=== PATIENT | male | born 1965 | race Caucasian/White ===

== ENCOUNTER 2021-12-02 15:22 | Emergency (ER) | payer OTHER ==
[2021-12-02] MEDS ORDERED: Ketorolac 30 MG/ML SDV IM ONE (17:14)
== END 2021-12-02 17:45 | disposition home or self-care (01) ==
LOC: LL.ED 15:22
DX: M25.561 Pain in right knee (principal); K21.9 Gastro-esophageal reflux disease without esophagitis; Z79.899 Other long term (current) drug therapy
CPT/HCPCS: 73562; 96372; 99283; J1885

== ENCOUNTER 2022-01-05 09:03 | Emergency (ER) | payer OTHER, MEDICARE | END 2022-01-05 09:20 | disposition home or self-care (01) | LOC: LL.ED 09:03 | DX: S61.012A Laceration without foreign body of left thumb without damage to nail, initial encounter (principal); K21.9 Gastro-esophageal reflux disease without esophagitis; F17.210 Nicotine dependence, cigarettes, uncomplicated; Z79.899 Other long term (current) drug therapy; W26.8XXA Contact with other sharp object(s), not elsewhere classified, initial encounter | CPT/HCPCS: 99282 ==

== ENCOUNTER 2022-03-31 18:07 | Emergency (ER) | payer MEDICARE, OTHER | END 2022-03-31 19:35 | disposition home or self-care (01) | LOC: LL.ED 18:07 | DX: S60.221A Contusion of right hand, initial encounter (principal); K21.9 Gastro-esophageal reflux disease without esophagitis; Z72.0 Tobacco use; Z79.899 Other long term (current) drug therapy; W00.0XXA Fall on same level due to ice and snow, initial encounter; Y93.29 Activity, other involving ice and snow | CPT/HCPCS: 73130-RT; 99283 ==

== ENCOUNTER 2024-03-29 09:28 | Inpatient (IN) | payer OTHER ==
[2024-03-29 09:43] LABS: BASOPHILS ABSOLUTE AUTO 0.09 K/uL (0.00-0.20); BASOPHILS PERCENT AUTO 0.7 % (0.0-2.0); EOSINOPHILS ABSOLUTE AUTO 0.05 K/uL (0.00-0.50); EOSINOPHILS PERCENT AUTO 0.4 % (0.0-5.0); HEMATOCRIT 49.5 % (39.0-49.0); HEMOGLOBIN 17.5 g/dL (13.1-16.8); IMMATURE GRAN ABSOLUTE AUTO 0.04 10^3/uL (0.00-0.50); IMMATURE GRAN PERCENT AUTO 0.3 % (0.0-5.0); LYMPHOCYTES ABSOLUTE AUTO 1.89 K/uL (0.50-3.50); LYMPHOCYTES PERCENT AUTO 14.6 % (10.0-50.0); MEAN CORPUSCULAR HEMOGLOBIN 32.5 pg (28.2-33.3); MEAN CORPUSCULAR HGB CONC 35.4 g/dL (31.7-36.0); MONOCYTES ABSOLUTE AUTO 0.93 K/uL (0.00-1.00); MONOCYTES PERCENT AUTO 7.2 % (2.0-14.0); NEUTROPHILS ABSOLUTE AUTO 9.95 K/uL (1.40-7.00); NEUTROPHILS PERCENT AUTO 76.8 % (45.0-80.0); PLATELET COUNT,PLT 219 K/uL (150-350); RED BLOOD CELL COUNT 5.38 M/uL (4.33-5.41); RED CELL DISTRIBUTION WIDTH 12.9 % (11.2-14.1)
[2024-03-29 10:02] LABS: PROTHROMBIN TIME 10.2 SEC (9.0-11.1)
[2024-03-29 10:04] LABS: ALBUMIN 3.5 g/dL (3.4-5.0); BILIRUBIN TOTAL 1.9 mg/dL (0.2-1.0); CARBON DIOXIDE,CO2 26.1 mmol/L (21.0-32.0); CREATININE 1.02 mg/dL (0.51-1.17); EST CRCL DRUG DOSING (CG) 91.78 mL/min; POTASSIUM,K 3.1 mmol/L (3.5-5.1); PROTEIN TOTAL,TP 7.4 g/dL (6.4-8.2)
[2024-03-29 10:09] LABS: LACTIC ACID 1.4 mmol/L (0.4-2.0)
[2024-03-29] MEDS: Ondansetron 4 MG/2 ML SDV IVPUSH ONE (10:27)
[2024-03-29] MEDS: Ketorolac 15 MG/ML SDV IVPUSH ONE (10:27)
[2024-03-29] MEDS: Sodium Chloride 0.9% 10 ML Syringe FLUSH PRN (10:28)
[2024-03-29] MEDS: Simethicone 125 MG Tab.Chew PO ONE (11:28)
[2024-03-29] MEDS ORDERED: Naloxone 0.4 MG/ML SDV IVPUSH PRN ×2 (12:31→13:28)
[2024-03-29] MEDS: Lactated Ringers 1,000 ML IV ONE (12:34)
[2024-03-29] MEDS: fentaNYL 50 MCG/ML SDV IVPUSH ONE ×3 (12:34→21:43)
[2024-03-29] MEDS: Lactated Ringers 1,000 ML IV SCH (13:35)
[2024-03-29] MEDS: Nicotine 21 MG/24 Hr Patch TRDERM SCH (14:33)
[2024-03-29] MEDS: Enoxaparin 40 MG/0.4 ML Syringe SUBCUT SCH (14:33)
[2024-03-29] MEDS: fentaNYL 50 MCG/ML SDV IVPUSH PRN (14:37)
[2024-03-29] MEDS: Ondansetron 4 MG/2 ML SDV IVPUSH PRN (16:29)
[2024-03-29] MEDS: Potassium Chloride Riders 10 MEQ in Premix Bag 1 BAG IV SCH (17:05)
[2024-03-29 17:47] LABS: MAGNESIUM 1.3 mg/dL (1.8-2.4); PHOSPHORUS 3.2 mg/dL (2.6-4.7); POTASSIUM,K 3.3 mmol/L (3.5-5.1)
[2024-03-29] MEDS: Promethazine 12.5 MG in Sodium Chloride 0.9% 100 ML IV PRN (21:21)
[2024-03-29] MEDS: Lactated Ringers 500 ML IV ONE (21:43)
[2024-03-29] MEDS: Magnesium Sulfate/Water Premix 2 GM in Premix Bag 1 BAG IV ONE (21:55)
[2024-03-29] MEDS: Pantoprazole 40 MG Vial IVPUSH SCH (23:22)
[2024-03-30] MEDS: Magnesium Sulfate/Water Premix 2 GM in Premix Bag 1 BAG IV ONE (03:52)
[2024-03-30 07:55] LABS: ALBUMIN 2.8 g/dL (3.4-5.0); ANION GAP 8.1 meq/L (7-15); CALCIUM 8.2 mg/dL (8.5-10.1); CARBON DIOXIDE,CO2 29.9 mmol/L (21.0-32.0); CREATININE 1.12 mg/dL (0.51-1.17); EST CRCL DRUG DOSING (CG) 83.59 mL/min; MAGNESIUM 2.4 mg/dL (1.8-2.4); PROTEIN TOTAL,TP 6.5 g/dL (6.4-8.2)
[2024-03-30 08:32] LABS: BASOPHILS ABSOLUTE AUTO 0.07 K/uL (0.00-0.20); BASOPHILS PERCENT AUTO 0.8 % (0.0-2.0); EOSINOPHILS ABSOLUTE AUTO 0.12 K/uL (0.00-0.50); EOSINOPHILS PERCENT AUTO 1.4 % (0.0-5.0); HEMATOCRIT 45.3 % (39.0-49.0); HEMOGLOBIN 15.5 g/dL (13.1-16.8); IMMATURE GRAN ABSOLUTE AUTO 0.03 10^3/uL (0.00-0.50); IMMATURE GRAN PERCENT AUTO 0.4 % (0.0-5.0); LYMPHOCYTES PERCENT AUTO 20.2 % (10.0-50.0); MEAN CORPUSCULAR HGB CONC 34.2 g/dL (31.7-36.0); MEAN CORPUSCULAR VOLUME 96.6 fL (84.0-98.0); MONOCYTES ABSOLUTE AUTO 0.71 K/uL (0.00-1.00); MONOCYTES PERCENT AUTO 8.4 % (2.0-14.0); NEUTROPHILS ABSOLUTE AUTO 5.79 K/uL (1.40-7.00); NEUTROPHILS PERCENT AUTO 68.8 % (45.0-80.0); PLATELET COUNT,PLT 136 K/uL (150-350); RED BLOOD CELL COUNT 4.69 M/uL (4.33-5.41); RED CELL DISTRIBUTION WIDTH 13.1 % (11.2-14.1); WHITE BLOOD CELL COUNT,WBC 8.4 K/uL (4.0-10.2)
[2024-03-30] MEDS ORDERED: Ketorolac 15 MG/ML SDV IVPUSH PRN (16:23)
[2024-03-31 07:51] LABS: BASOPHILS ABSOLUTE AUTO 0.05 K/uL (0.00-0.20); BASOPHILS PERCENT AUTO 0.6 % (0.0-2.0); EOSINOPHILS ABSOLUTE AUTO 0.21 K/uL (0.00-0.50); EOSINOPHILS PERCENT AUTO 2.5 % (0.0-5.0); HEMATOCRIT 44.9 % (39.0-49.0); HEMOGLOBIN 15.6 g/dL (13.1-16.8); IMMATURE GRAN ABSOLUTE AUTO 0.03 10^3/uL (0.00-0.50); IMMATURE GRAN PERCENT AUTO 0.4 % (0.0-5.0); LYMPHOCYTES ABSOLUTE AUTO 1.47 K/uL (0.50-3.50); LYMPHOCYTES PERCENT AUTO 17.5 % (10.0-50.0); MEAN CORPUSCULAR HEMOGLOBIN 32.6 pg (28.2-33.3); MEAN CORPUSCULAR HGB CONC 34.7 g/dL (31.7-36.0); MEAN CORPUSCULAR VOLUME 93.9 fL (84.0-98.0); MONOCYTES ABSOLUTE AUTO 0.64 K/uL (0.00-1.00); MONOCYTES PERCENT AUTO 7.6 % (2.0-14.0); NEUTROPHILS PERCENT AUTO 71.4 % (45.0-80.0); PLATELET COUNT,PLT 140 K/uL (150-350); RED BLOOD CELL COUNT 4.78 M/uL (4.33-5.41); RED CELL DISTRIBUTION WIDTH 12.6 % (11.2-14.1); WHITE BLOOD CELL COUNT,WBC 8.4 K/uL (4.0-10.2)
[2024-03-31 08:12] LABS: ALBUMIN 2.7 g/dL (3.4-5.0); BILIRUBIN TOTAL 1.9 mg/dL (0.2-1.0); CALCIUM 8.2 mg/dL (8.5-10.1); CREATININE 0.89 mg/dL (0.51-1.17); EST CRCL DRUG DOSING (CG) 105.19 mL/min; POTASSIUM,K 3.2 mmol/L (3.5-5.1); PROTEIN TOTAL,TP 6.7 g/dL (6.4-8.2)
[2024-03-31 08:13] LABS: ANION GAP 13.2 meq/L (7-15)
[2024-03-31] MEDS: Potassium Bicarbonate/Cit Ac 20 MEQ Effervescent Tab PO ONE (11:44)
== END 2024-03-31 11:49 | disposition home or self-care (01) | DRG 440 ==
LOC: LL.ED 09:28 → LL.MS 12:46 → UNDOADMIN 12:52
PROVIDERS: ADMIT Physician Assistant; ATTEND Physician Assistant
DX: K85.90 Acute pancreatitis without necrosis or infection, unspecified (principal); R11.0 Nausea; E87.6 Hypokalemia; E83.42 Hypomagnesemia; K21.9 Gastro-esophageal reflux disease without esophagitis; M54.9 Dorsalgia, unspecified; G89.29 Other chronic pain; I10 Essential (primary) hypertension; H54.7 Unspecified visual loss; Z88.8 Allergy status to other drugs, medicaments and biological substances; Z79.899 Other long term (current) drug therapy; Z87.81 Personal history of (healed) traumatic fracture; Z98.890 Other specified postprocedural states
CPT/HCPCS: 36415; 74019; 76705; 80053; 80061; 82947; 83605; 83690; 83735; 84100; 84132; 85025; 85610; 96374; 96375; 99223; 99233; 99239; 99285-25; A9270-GY; J1650; J1885; J2405; J2470; J2550; J3010; J3475; J3480; J3490; J7120

== ENCOUNTER 2024-09-01 07:29 | Emergency (ER) | payer OTHER ==
[2024-09-01 07:49] LABS: BASOPHILS ABSOLUTE AUTO 0.07 K/uL (0.00-0.20); BASOPHILS PERCENT AUTO 0.8 % (0.0-2.0); EOSINOPHILS PERCENT AUTO 2.3 % (0.0-5.0); HEMATOCRIT 47.4 % (39.0-49.0); HEMOGLOBIN 17.1 g/dL (13.1-16.8); IMMATURE GRAN ABSOLUTE AUTO 0.03 10^3/uL (0.00-0.04); IMMATURE GRAN PERCENT AUTO 0.3 % (0.0-0.4); LYMPHOCYTES ABSOLUTE AUTO 2.51 K/uL (0.50-3.50); LYMPHOCYTES PERCENT AUTO 28.8 % (10.0-50.0); MEAN CORPUSCULAR HEMOGLOBIN 35.2 pg (28.2-33.3); MEAN CORPUSCULAR HGB CONC 36.1 g/dL (31.7-36.0); MEAN CORPUSCULAR VOLUME 97.5 fL (84.0-98.0); MONOCYTES ABSOLUTE AUTO 0.71 K/uL (0.00-1.00); MONOCYTES PERCENT AUTO 8.1 % (2.0-14.0); NEUTROPHILS PERCENT AUTO 59.7 % (45.0-80.0); PLATELET COUNT,PLT 199 K/uL (150-350); RED BLOOD CELL COUNT 4.86 M/uL (4.33-5.41); RED CELL DISTRIBUTION WIDTH 15.2 % (11.2-14.1); WHITE BLOOD CELL COUNT,WBC 8.7 K/uL (4.0-10.2)
[2024-09-01] MEDS ORDERED: Naloxone 0.4 MG/ML SDV IVPUSH PRN (07:51)
[2024-09-01] MEDS ORDERED: LORazepam 2 MG/ML SDV IVPUSH PRN (07:53)
[2024-09-01] MEDS: Sodium Chloride 0.9% 1,000 ML IV SCH ×2 (07:54→11:57)
[2024-09-01] MEDS: fentaNYL 50 MCG/ML SDV IVPUSH ONE ×4 (07:56→14:07)
[2024-09-01] MEDS: Sodium Chloride 0.9% 10 ML Syringe FLUSH PRN (07:57)
[2024-09-01] MEDS: Iopamidol 612 MG/ML 100 ML Bottle IVPUSH ONE (08:02)
[2024-09-01 08:08] LABS: LACTIC ACID 2.5 mmol/L (0.4-2.0)
[2024-09-01 08:15] LABS: ALANINE AMINOTRANSFERASE,ALT 81 U/L (12-78); ALKALINE PHOSPHATASE 125 IU/L (46-116); ASPARTATE AMNIOTRANSFERASE,AST 147 U/L (15-37); BILIRUBIN TOTAL 1.2 mg/dL (0.2-1.0); BLOOD UREA NITROGEN,BUN 4 mg/dL (7-18); CALCIUM 8.4 mg/dL (8.5-10.1); CARBON DIOXIDE,CO2 27.6 mmol/L (21.0-32.0); CHLORIDE,CL 104 mmol/L (98-107); CREATININE 0.86 mg/dL (0.51-1.17); GLUCOSE RANDOM 129 mg/dL (70-99); PROTEIN TOTAL,TP 6.8 g/dL (6.4-8.2); SODIUM,NA 141 mmol/L (136-145)
[2024-09-01 08:29] LABS: ESTIMATED GFR 100 mL/min (>=60); LIPASE 414 U/L (16-77); POTASSIUM,K 2.6 mmol/L (3.5-5.1)
[2024-09-01] MEDS: Potassium Chloride Riders 10 MEQ in Premix Bag 1 BAG IV ONE ×2 (08:50→12:01)
[2024-09-01] MEDS: Potassium Bicarbonate/Cit Ac 20 MEQ Effervescent Tab PO ONE ×4 (08:51→13:28)
[2024-09-01] MEDS: Potassium Chloride Riders 10 MEQ in Premix Bag 1 BAG IV SCH (09:46)
[2024-09-01] MEDS: LORazepam 1 MG Tab PO ONE ×2 (11:47→14:20)
[2024-09-01] MEDS: Promethazine 25 MG Tab PO ONE (11:55)
[2024-09-01] MEDS: cloNIDine 0.1 MG Tab PO ONE (13:27)
[2024-09-01] MEDS: Ketorolac 15 MG/ML SDV IVPUSH ONE (13:30)
[2024-09-01] MEDS: Nicotine 21 MG/24 Hr Patch TRDERM ONE (14:20)
== END 2024-09-01 14:28 ==
LOC: SUPCPDRO 07:29 → LL.ED 07:29
DX: K85.90 Acute pancreatitis without necrosis or infection, unspecified (principal); F10.10 Alcohol abuse, uncomplicated; E86.0 Dehydration; E87.6 Hypokalemia; E87.20 Acidosis, unspecified; Z88.8 Allergy status to other drugs, medicaments and biological substances; Z79.899 Other long term (current) drug therapy
CPT/HCPCS: 36415; 74178; 80053; 80307; 83605; 83690; 83735; 84132; 85025; 96361; 96365; 96366; 96375; 96376; 99284; 99285-25; A9270-GY; J1885; J3010; J3480; J7030; Q0169; Q9967

== ENCOUNTER 2025-01-25 11:02 | Emergency (ER) | payer OTHER ==
[2025-01-25] MEDS ORDERED: Naloxone 0.4 MG/ML SDV IVPUSH PRN ×2 (11:41→13:45)
[2025-01-25 11:45] LABS: BASOPHILS ABSOLUTE AUTO 0.05 K/uL (0.00-0.20); BASOPHILS PERCENT AUTO 0.4 % (0.0-2.0); EOSINOPHILS ABSOLUTE AUTO 0.05 K/uL (0.00-0.50); EOSINOPHILS PERCENT AUTO 0.4 % (0.0-5.0); IMMATURE GRAN ABSOLUTE AUTO 0.04 10^3/uL (0.00-0.04); IMMATURE GRAN PERCENT AUTO 0.3 % (0.0-0.4); LYMPHOCYTES ABSOLUTE AUTO 2.44 K/uL (0.50-3.50); LYMPHOCYTES PERCENT AUTO 17.9 % (10.0-50.0); MONOCYTES ABSOLUTE AUTO 0.96 K/uL (0.00-1.00); MONOCYTES PERCENT AUTO 7.0 % (2.0-14.0); NEUTROPHILS ABSOLUTE AUTO 10.12 K/uL (1.40-7.00); NEUTROPHILS PERCENT AUTO 74.0 % (45.0-80.0); PLATELET COUNT,PLT 203 K/uL (150-350); RED BLOOD CELL COUNT 5.78 M/uL (4.33-5.41); RED CELL DISTRIBUTION WIDTH 16.8 % (11.2-14.1); WHITE BLOOD CELL COUNT,WBC 13.7 K/uL (4.0-10.2)
[2025-01-25] MEDS: Sodium Chloride 0.9% 10 ML Syringe FLUSH PRN (11:48)
[2025-01-25 11:57] LABS: LACTIC ACID 2.2 mmol/L (0.4-2.0)
[2025-01-25 12:02] LABS: ALANINE AMINOTRANSFERASE,ALT 34.0 U/L (12-78); ASPARTATE AMNIOTRANSFERASE,AST 27.0 U/L (15-37); BILIRUBIN TOTAL 0.7 mg/dL (0.2-1.0); BLOOD UREA NITROGEN,BUN 4.0 mg/dL (7-18); CARBON DIOXIDE,CO2 20.6 mmol/L (21.0-32.0); CHLORIDE,CL 104.0 mmol/L (98-107); CREATININE 1.0 mg/dL (0.51-1.17); EST CRCL DRUG DOSING (CG) 95.06 mL/min; ESTIMATED GFR 87.0 mL/min (>=60); ETHANOL BLOOD MEDICAL 0.023 g/dL (0.000-0.080); GLUCOSE RANDOM 125.0 mg/dL (70-99); POTASSIUM,K 3.0 mmol/L (3.5-5.1); PROTEIN TOTAL,TP 7.6 g/dL (6.4-8.2); SODIUM,NA 141.0 mmol/L (136-145)
[2025-01-25] MEDS: Potassium Bicarbonate/Cit Ac 20 MEQ Effervescent Tab PO ONE (13:09)
[2025-01-25] MEDS: fentaNYL 50 MCG/ML SDV IVPUSH ONE ×2 (13:48→15:16)
[2025-01-25] MEDS: LORazepam 2 MG/ML SDV IVPUSH ONE (14:51)
== END 2025-01-25 15:19 ==
LOC: LL.ED 11:02
DX: K85.90 Acute pancreatitis without necrosis or infection, unspecified (principal); F10.10 Alcohol abuse, uncomplicated; K21.9 Gastro-esophageal reflux disease without esophagitis; F17.200 Nicotine dependence, unspecified, uncomplicated; Z88.8 Allergy status to other drugs, medicaments and biological substances; Z79.899 Other long term (current) drug therapy; Z90.49 Acquired absence of other specified parts of digestive tract
CPT/HCPCS: 36415; 80053; 80307; 83605; 83690; 85025; 96361; 96374; 96375; 96376; 99284-25; A9270-GY; J1171; J2060; J3010; J7030; Q0169